=== PATIENT | male | born 1960 | race Asian ===

== ENCOUNTER 2024-11-27 18:28 | Emergency (ER) | payer MEDICARE, BC ==
[~2024-11-27] VITALS: Ht 170.2 cm; Wt 54.4 kg
[2024-11-27] MEDS ORDERED: ONDANSETRON HCL/PF 4 MG/2 ML VIAL ONE (18:58)
[2024-11-27] MEDS: IV NS 0.9% 1,000 ML BAG IV ONE (19:10)
[2024-11-27] MEDS: ONDANSETRON HCL/PF 4 MG/2 ML VIAL IVP ONE (19:11)
[2024-11-27 19:13] LABS: CALCIUM, SERUM 8.7 mg/dL (8.5-10.1); CREATININE 0.9 mg/dL (0.6-1.3); SODIUM SERUM 138 mmol/L (136-145); UREA NITROGEN, BLOOD 20 mg/dL (7-18)
[2024-11-27 19:18] LABS: ASPARTATE AMINOTRANSFERASE 25 U/L (15-37); TOTAL PROTEIN, SERUM 7.4 g/dL (6.4-8.2)
[2024-11-27 19:19] LABS: INR 0.98 (0.91-1.10); PLATELET COUNT (AUTO) 213 K/uL (150-450); RED BLOOD CELL COUNT(AUTO) 5.00 MIL/uL (4.5-6.0); RED CELL DISTRIBUTION WIDTH 14.4 % (11.5-15.0); WHITE BLOOD COUNT (AUTO) 8.2 K/uL (4.3-11.0)
[2024-11-27] MEDS ORDERED: ONDA4TAB5 PO (19:42)
[2024-11-27 20:10] VITALS: BP 132/77; TEMP 98.5; O2SAT 99
== END 2024-11-27 20:11 | disposition home or self-care (01) ==
LOC: ER 18:30
DX: R53.1 Weakness (principal); R11.2 Nausea with vomiting, unspecified; Z86.2 Personal history of diseases of the blood and blood-forming organs and certain disorders involving the immune mechanism
CPT/HCPCS: 99284; 96374; 96361; 93005; 85025; 80048; 80076; 36415; 84484; 85730; 82962; J2405; J7030